=== PATIENT | female | born 1990 | race Caucasian/White ===

== ENCOUNTER 2017-03-13 22:55 | Emergency (ER) | payer OTHER ==
[2017-03-14 02:33] VITALS: BP 121/75
== END 2017-03-14 02:33 | disposition home or self-care (01) ==
LOC: ED 22:55
DX: S16.1XXA Strain of muscle, fascia and tendon at neck level, initial encounter (principal); K21.9 Gastro-esophageal reflux disease without esophagitis; V49.69XA Unspecified car occupant injured in collision with other motor vehicles in traffic accident, initial encounter; Y93.I9 Activity, other involving external motion; Y92.488 Other paved roadways as the place of occurrence of the external cause; Y99.8 Other external cause status
CPT/HCPCS: J1885

== ENCOUNTER 2017-05-22 20:50 | Emergency (ER) | payer OTHER ==
[2017-05-22 22:52] VITALS: BP 116/65
== END 2017-05-22 22:52 | disposition home or self-care (01) ==
LOC: ED 20:50
DX: T78.40XA Allergy, unspecified, initial encounter (principal); R21 Rash and other nonspecific skin eruption; K21.9 Gastro-esophageal reflux disease without esophagitis; X58.XXXA Exposure to other specified factors, initial encounter
CPT/HCPCS: J7512

== ENCOUNTER 2018-04-28 12:12 | Emergency (ER) | payer OTHER ==
[~2018-04-28] VITALS: Ht 167.6 cm; Wt 79.8 kg
[2018-04-28 12:15] VITALS: Ht 167.6 cm; Wt 79.8 kg
[2018-04-28 12:56] LABS: BASOPHIL % 0.6 % (0-2); PLATELET COUNT 221 x10^3mcL (130-400); RED CELL DISTRIBUTION WIDTH 11.5 % (11.5-14.5)
[2018-04-28 13:06] LABS: AMPHETAMINE QUAL UR NONE DETECTED (See below)
[2018-04-28 13:09] LABS: CARBON DIOXIDE 27.2 mmol/L (21-32); CHLORIDE SERUM 102 mmol/L (98-107); CREATININE SERUM 0.8 mg/dL (0.6-1.0); GFR1 > 60 mL/min; GLUCOSE SERUM 117 mg/dL (74-106); POTASSIUM SERUM 3.6 mmol/L (3.5-5.1); SODIUM SERUM 136 mmol/L (136-145)
[2018-04-28 13:15] LABS: ALKALINE PHOSPHATASE 51 U/L (46-116); ALT/SGPT 19 U/L (14-59); AMYLASE 41 U/L (25-115); AST/SGOT 18 U/L (15-37); BILIRUBIN TOTAL 0.3 mg/dL (0.20-1.00); CHOLESTEROL 166 mg/dL (<200); HDL CHOLESTEROL 49 mg/dL (40-60); LIPASE 133 IU/L (73-393); TOTAL PROTEIN, SERUM 8.1 g/dL (6.4-8.2)
[2018-04-28 15:02] VITALS: BP 121/60
== END 2018-04-28 15:02 | disposition home or self-care (01) ==
LOC: ED 12:12
PROVIDERS: Emergency Medicine
DX: R07.89 Other chest pain (principal); R06.02 Shortness of breath; K21.9 Gastro-esophageal reflux disease without esophagitis
CPT/HCPCS: 36415; 85378; G0480; J7030; Q9967